=== PATIENT | male | born 1980 | race Two or more races ===

== ENCOUNTER 2020-06-12 13:02 | Emergency (ER) | payer OTHER ==
[~2020-06-12] VITALS: Ht 170.2 cm; Wt 95.3 kg
[2020-06-12 13:47] VITALS: BP 136/91
[2020-06-12] MEDS ORDERED: TETANUS-DIPTH-ACEL PERTUSSIS 0.5ML SYR Tdap IM ONE (14:30)
== END 2020-06-12 15:06 | disposition home or self-care (01) ==
LOC: ER 13:02
DX: S01.01XA Laceration without foreign body of scalp, initial encounter (principal); W20.8XXA Other cause of strike by thrown, projected or falling object, initial encounter; Y93.89 Activity, other specified; Y92.89 Other specified places as the place of occurrence of the external cause; Y99.0 Civilian activity done for income or pay
CPT/HCPCS: 12002; 90471; 90715

== ENCOUNTER 2025-06-24 07:51 | Emergency (ER) | payer SELFPAY ==
[~2025-06-24] VITALS: Ht 167.6 cm; Wt 89.3 kg
[2025-06-24 09:05] VITALS: BP 144/91; PULSE 98; RESP 15; TEMP 97.6; O2SAT 91
--- NOTE | 2025-06-24 09:29 | DVH ---
Indication: r/o fracture Technique: CT axial images of the right knee are obtained without contrast. Coronal and sagittal refo rmats were obtained. Radiation Dose Information: CTDI volume is 7.75 mGy. Dose-length product is 244.48 mGy*cm Comparison: None FINDINGS/IMPRESSION: Fracture of the posterolateral tibial plateau that is mildly displaced with the fracture fragment kingsley suring approximately 1.3 x 1.4 cm. Moderate degenerative changes of the right knee most pronounced wi thin the medial compartment. Fluid collection along the anteromedial aspect of the right femur measuring 3.3 x 9.9 by 12.2 cm. The re is another fluid collection along the anterior aspect of the right tibia/ fibula measuring 15.2 x 6.4 by 6.5 cm. This collection appears multiloculated. there is associated soft tissue edema, stran ding. Correlate for infected collection/ abscess, hematoma, seroma. Small to moderate suprapatellar effusion.
[2025-06-24] MEDS ORDERED: NAPR-746 PO (10:01)
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
== END 2025-06-24 10:34 | disposition home or self-care (01) ==
LOC: ER 07:51
DX: S82.141A Displaced bicondylar fracture of right tibia, initial encounter for closed fracture (principal); V29.99XA Rider (driver) (passenger) of other motorcycle injured in unspecified traffic accident, initial encounter; Y93.I9 Activity, other involving external motion; Y92.488 Other paved roadways as the place of occurrence of the external cause; Y99.2 Volunteer activity
CPT/HCPCS: 29505; 73700

== ENCOUNTER 2025-06-26 16:07 | Emergency (ER) | payer MEDICAID, OTHER ==
[~2025-06-26] VITALS: Ht 167.6 cm; Wt 89.5 kg
[~2025-06-26 16:07] MED LIST: NAPR-746 PO
[2025-06-26 16:09] VITALS: TEMP 97.8
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
[2025-06-26] MEDS: HYDROcodone-ACET 10/325MG TAB PO ONE (17:42)
[2025-06-26 17:46] VITALS: BP 136/94; PULSE 83; RESP 20; O2SAT 93
[2025-06-26] MEDS ORDERED: HYDR-4902 PO (17:56)
== END 2025-06-26 18:01 | disposition home or self-care (01) ==
LOC: ER 16:07
DX: S82.141A Displaced bicondylar fracture of right tibia, initial encounter for closed fracture (principal); Z79.899 Other long term (current) drug therapy; X58.XXXA Exposure to other specified factors, initial encounter; Y93.9 Activity, unspecified; Y92.89 Other specified places as the place of occurrence of the external cause; Y99.8 Other external cause status